=== PATIENT | male | born 1980 | race Hispanic/Latino ===

== ENCOUNTER 2017-08-03 10:46 | Emergency (ER) | payer BC ==
[2017-08-03 11:31] LABS: Absolute Lymphocytes (CBC) 1.7 K/uL (0.7-4.9); Absolute Monocytes 0.6 K/uL (0.1-1.3); Absolute Neutrophil 7.2 K/uL (1.8-8.0); Basophils % 0.6 % (0-1.3); Eosinophils % 1.4 % (0-4.4); Hematocrit 47.3 % (39.6-49.0); Lymphocytes % 17.8 % (15.3-44.8); MCH 29.4 pg (27.0-35.0); MCV 90.5 fL (80-100); MPV 10.5 fL (7.6-11.3); Monocytes % 6.4 % (3.3-12.3); RBC Red Blood Cell Count 5.23 M/uL (4.33-5.43)
[2017-08-03 11:37] LABS: Protime INR 0.97
[2017-08-03 11:45] LABS: Bicarbonate 30 mEq/L (21-31); Glucose Level 103 mg/dL (65-120); Potassium 3.4 mEq/L (3.6-5.0); Sodium Level 139 mEq/L (135-145)
[2017-08-03 11:46] LABS: BUN Blood Urea Nitrogen 15 mg/dL (6-20); Magnesium 2.1 mg/dL (1.8-2.5)
--- NOTE | 2017-08-03 12:44 | RAD REPORT ---
EXAM DESCRIPTION: RAD - Chest Single View - 08/03/2017 12:37 pm CLINICAL HISTORY: Chest pain. Palpitations. COMPARISON: None. FINDINGS: Portable technique limits examination quality. The lungs are grossly clear. The heart is normal in size. No displaced fractures. IMPRESSION: No acute intrathoracic process suspected.
--- NOTE | 2017-08-03 12:50 | EDPHYS ---
Physician Documentation [facility] Name: Cornelius Simmons Age: 36 yrs Sex: Male : 1980 Arrival Date: 08/03/2017 Time: 10:52 Bed 6 Private MD: None, None ED Physician Sorin Harper HPI: 08/03 12:04 This 36 yrs old Male presents to ER via Wheelchair with complaints of jr8 Dizziness, Palpitations. 12:04 The patient presents with lightheadedness. Onset: The symptoms/episode began/occurred jr8 acutely, today. Context: occurred at home, occurred while the patient was at rest. Associated signs and symptoms: Pertinent positives: palpitations. Severity of symptoms: At their worst the symptoms were moderate in the emergency department the symptoms are unchanged. Patient's baseline: Neuro: alert and fully oriented, Motor: no deficits, Ambulation: walks without assistance, Speech: normal. The patient has not experienced similar symptoms in the past. The patient has not recently seen a physician. Historical: - Allergies: 11:08 NKA; iw - Home Meds: : None [Active]; iw - PMHx: :08 None; iw - PSHx: 11:08 Hernia repair; iw - Immunization history:: Adult Immunizations not up to date. - Social history:: Smoking status: Patient uses tobacco products, denies chronic smoking, but will smoke occasionally. - Ebola Screening: : Patient negative for fever greater than or equal to 101.5 degrees Fahrenheit, and additional compatible Ebola Virus Disease symptoms Patient denies exposure to infectious person Patient denies travel to an Ebola-affected area in the 21 days before illness onset No symptoms or risks identified at this time. ROS: 12:04 Eyes: Negative for injury, pain, redness, and discharge, ENT: Negative for injury, jr8 pain, and discharge, Neck: Negative for injury, pain, and swelling, Respiratory: Negative for shortness of breath, cough, wheezing, and pleuritic chest pain, Abdomen/GI: Negative for abdominal pain, nausea, vomiting, diarrhea, and constipation, Back: Negative for injury and pain, MS/Extremity: Negative for injury and deformity, Skin: Negative for injury, rash, and discoloration, Neuro: Negative for headache, weakness, numbness, tingling, and seizure. 12:04 Cardiovascular: Positive for palpitations, Negative for chest pain, edema, orthopnea, paroxysmal nocturnal dyspnea. Exam: 12:04 Eyes: Pupils equal round and reactive to light, extra-ocular motions intact. Lids and jr8 lashes normal. Conjunctiva and sclera are non-icteric and not injected. Cornea within normal limits. Periorbital areas with no swelling, redness, or edema. ENT: Nares patent. No nasal discharge, no septal abnormalities noted. Tympanic membranes are normal and external auditory canals are clear. Oropharynx with no redness, swelling, or masses, exudates, or evidence of obstruction, uvula midline. Mucous membranes moist. Neck: Trachea midline, no thyromegaly or masses palpated, and no cervical lymphadenopathy. Supple, full range of motion without nuchal rigidity, or vertebral point tenderness. No Meningismus. Cardiovascular: Regular rate and rhythm with a normal S1 and S2. No gallops, murmurs, or rubs. Normal PMI, no JVD. No pulse deficits. Respiratory: Lungs have equal breath sounds bilaterally, clear to auscultation and percussion. No rales, rhonchi or wheezes noted. No increased work of breathing, no retractions or nasal flaring. Abdomen/GI: Soft, non-tender, with normal bowel sounds. No distension or tympany. No guarding or rebound. No evidence of tenderness throughout. Back: No spinal tenderness. No costovertebral tenderness. Full range of motion. Skin: Warm, dry with normal turgor. Normal color with no rashes, no lesions, and no evidence of cellulitis. MS/ Extremity: Pulses equal, no cyanosis. Neurovascular intact. Full, normal range of motion. Neuro: Awake and alert, GCS 15, oriented to person, place, time, and situation. Cranial nerves II-XII grossly intact. Motor strength 5/5 in all extremities. Sensory grossly intact. Cerebellar exam normal. Normal gait. Vital Signs: 11:06 BP 133 / 92; Pulse 94; Resp 18 S; Temp 98.0(TE); Pulse Ox 100% on R/A; Weight 104.33 iw kg; Height 5 ft. 9 in. (175.26 cm); Pain 0/10; 12:14 BP 124 / 84; Pulse 84; Resp 18; Pulse Ox 100% on R/A; hj 12:58 BP 120 / 78; Pulse 88; Resp 18; Pulse Ox 100% on R/A; hj 11:06 Body Mass Index 33.96 (104.33 kg, 175.26 cm) iw MDM: 10:59 Patient medically screened. [facility] 12:04 Data reviewed: vital signs, nurses notes, lab test result(s), EKG, radiologic studies, jr8 plain films, and as a result, I will discharge patient. Data interpreted: Pulse oximetry: on room air is 100 %. Interpretation: normal. Counseling: I had a detailed discussion with the patient and/or guardian regarding: the historical points, exam findings, and any diagnostic results supporting the discharge/admit diagnosis, lab results, radiology results, the need for outpatient follow up, a bar helper, to return to the emergency department if symptoms worsen or persist or if there are any questions or concerns that arise at home. ED course: Discussed with patient that there is nothing emergent that we can find. That he more then likely had transient arrhythmia. That he will need to follow up with cardiology for Holter monitor. If he felt it again before then to come back in. Family and patient good with this and will follow up . 08/03 11:14 Order name: Basic Metabolic Panel; Complete Time: [facility] 08/03 11:14 Order name: BNP; Complete Time: [facility] 08/03 11:14 Order name: CBC with Diff; Complete Time: 11:37 08/03 11:14 Order name: Magnesium; Complete Time: [facility] 08/03 11:14 Order name: PT-INR; Complete Time: 11:42 08/03 11:14 Order name: Troponin (emerg Dept Use Only); Complete Time: 08/03 11:14 Order name: XRAY Chest (1 view); Complete Time: 12:49 08/03 11:14 Order name: EKG; Complete Time: 08/03 11:14 Order name: Cardiac monitoring; Complete Time: 08/03 11:14 Order name: EKG - Nurse/Tech; Complete Time: 11:08/03 11:14 Order name: IV Saline Lock; Complete Time: 11:16 08/03 11:14 Order name: Labs collected and sent; Complete Time: 11:16 8 08/03 11:14 Order name: O2 Per Protocol; Complete Time: :16 jr8 08/03 11:14 Order name: O2 Sat Monitoring; Complete Time: :16 8 Administered Medications: No medications were administered Disposition: 15:16 Co-signature as Attending Physician, Sorin Harper MD I agree with the assessment and kdr plan of care. Disposition: 08/03/17 12:49 Discharged to Home. Impression: Palpitations. - Condition is Stable. - Discharge Instructions: Atrial Fibrillation, Palpitations, Premature Ventricular Contraction. - Work release form, Medication Reconciliation Form, Thank You Letter, Antibiotic Education, Prescription Opioid Use form. - Follow up: Luc Chand; When: 1 - 2 days; Reason: Recheck today's complaints, Continuance of care, Re-evaluation by your physician. - Problem is new. - Symptoms are resolved. Signatures: Dispatcher [employer] EDSorin Hernandez MD MD [facility] Lucinda Thomason RN RN Brad Carrion PA PA jr8 Joce Montiel RN RN hj Corrections: (The following items were deleted from the chart) 12:59 12:49 08/03/2017 12:49 Discharged to Home. Impression: Palpitations. Condition is hj Stable. Discharge Instructions: Atrial Fibrillation, Palpitations, Premature Ventricular Contraction. Forms are Medication Reconciliation Form, Thank You Letter, Antibiotic Education, Prescription Opioid Use. Follow up: Luc Chand; When: 1 - 2 days; Reason: Recheck today's complaints, Continuance of care, Re-evaluation by your physician. Problem is new. Symptoms are resolved. jr8 13:01 12:59 08/03/2017 12:49 Discharged to Home. Impression: Palpitations. Condition is jr8 Stable. Discharge Instructions: Atrial Fibrillation, Palpitations, Premature Ventricular Contraction. Forms are Medication Reconciliation Form, Thank You Letter, Antibiotic Education, Prescription Opioid Use. Follow up: Luc Chand; When: 1 - 2 days; Reason: Recheck today's complaints, Continuance of care, Re-evaluation by your physician. Problem is new. Symptoms are resolved. hj
--- NOTE | 2017-08-03 12:50 | ER ---
Nurse's Notes [facility] Name: Cornelius Simmons Age: 36 yrs Sex: Male : 1980 Arrival Date: 08/03/2017 Time: 10:52 Bed 6 Private MD: None, None Diagnosis: Palpitations Presentation: 08/03 11:04 Presenting complaint: Patient states: felt like he had palpitations yesterday around iw 230 pm that lasted til this morning, also felt dizzy when he stood up, states symptoms have improved but not completely resolved, denies chest pain. Transition of care: patient was not received from another setting of care. Onset of symptoms was August 02, 2017. Risk Assessment: Do you want to hurt yourself or someone else? Patient reports no desire to harm self or others. Initial Sepsis Screen: Does the patient meet any 2 criteria? No. Patient's initial sepsis screen is negative. Does the patient have a suspected source of infection? No. Patient's initial sepsis screen is negative. Care prior to arrival: None. 11:04 Method Of Arrival: Wheelchair iw 11:04 Acuity: ANGELLA 3 iw Triage Assessment: 11:17 General: Appears in no apparent distress. uncomfortable, Behavior is calm, cooperative, hj appropriate for age. Pain: Denies pain. Historical: - Allergies: 11:08 NKA; iw - Home Meds: 11:08 None [Active]; iw - PMHx: 11:08 None; iw - PSHx: 11:08 Hernia repair; iw - Immunization history:: Adult Immunizations not up to date. - Social history:: Smoking status: Patient uses tobacco products, denies chronic smoking, but will smoke occasionally. - Ebola Screening: : Patient negative for fever greater than or equal to 101.5 degrees Fahrenheit, and additional compatible Ebola Virus Disease symptoms Patient denies exposure to infectious person Patient denies travel to an Ebola-affected area in the 21 days before illness onset No symptoms or risks identified at this time. Screenin:17 Abuse screen: Denies threats or abuse. Denies injuries from another. Nutritional hj screening: No deficits noted. Tuberculosis screening: No symptoms or risk factors identified. Fall Risk None identified. Assessment: 11:06 General: Appears in no apparent distress. uncomfortable, Behavior is calm, cooperative, hj appropriate for age. Pain: Denies pain. Neuro: Level of Consciousness is awake, alert, obeys commands, Oriented to person, place, time, situation, Appropriate for age. Cardiovascular: Reports palpitations, Denies chest pain, Capillary refill < 3 seconds Patient's skin is warm and dry. Respiratory: Airway is patent Respiratory effort is even, unlabored, Respiratory pattern is regular, symmetrical. GI: No signs and/or symptoms were reported involving the gastrointestinal system. : No signs and/or symptoms were reported regarding the genitourinary system. EENT: No signs and/or symptoms were reported regarding the EENT system. Derm: No signs and/or symptoms reported regarding the dermatologic system. Musculoskeletal: No signs and/or symptoms reported regarding the musculoskeletal system. 12:14 Reassessment: Patient and/or family updated on plan of care and expected duration. Pain hj level reassessed. Patient is alert, oriented x 3, equal unlabored respirations, skin warm/dry/pink. Patient states feeling better. Vital Signs: 11:06 BP 133 / 92; Pulse 94; Resp 18 S; Temp 98.0(TE); Pulse Ox 100% on R/A; Weight 104.33 iw kg; Height 5 ft. 9 in. (175.26 cm); Pain 0/10; 12:14 BP 124 / 84; Pulse 84; Resp 18; Pulse Ox 100% on R/A; hj 12:58 BP 120 / 78; Pulse 88; Resp 18; Pulse Ox 100% on R/A; hj 11:06 Body Mass Index 33.96 (104.33 kg, 175.26 cm) iw ED Course: 10:52 Patient arrived in ED. mr 10:52 None, None is Private Physician. mr 10:59 Brad Carrion PA is PHCP. jr8 10:59 Sorin Harper MD is Attending Physician. jr8 11:06 Triage completed. iw 11:06 Arm band placed on. iw 11:13 Missed attempt(s): 20 gauge in left antecubital area. Bleeding controlled, band aid ks6 applied, catheter tip intact. 11:14 Inserted saline lock: 20 gauge in left antecubital area, using aseptic technique. Blood dh3 collected. 11:15 Joce Montiel, KIRSTIN is Primary Nurse. hj 11:18 Patient has correct armband on for positive identification. Placed in gown. Bed in low hj position. Call light in reach. Side rails up X 1. 11:26 EKG done, by genetic technologist. reviewed by Brad REEVES. 11:26 Initial lab(s) drawn, by me, sent to lab. formerly [facility] 12:33 X-ray completed. Portable x-ray completed in exam room. Patient tolerated procedure jb2 well. 12:35 XRAY Chest (1 view) In Process Unspecified. EDMS 12:49 Luc Chand MD is Referral Physician. jr8 12:57 IV discontinued, intact, bleeding controlled, No redness/swelling at site. Pressure hj dressing applied. 12:57 No provider procedures requiring assistance completed. hj Administered Medications: No medications were administered Outcome: 12:49 Discharge ordered by . jr8 12:57 Discharged to home ambulatory, with family. 12:57 Condition: stable 12:57 Discharge instructions given to patient, family, Instructed on discharge instructions, follow up and referral plans. Demonstrated understanding of instructions, follow-up care. 12:59 Patient left the ED. 13:01 Patient left the ED. jr8 Signatures: Dispatcher [employer] EDVT Sue Churchill mr SeguraMike jb2 Lucinda Thomason, RN Brad Miles PA PA jr8 [place] Joce Montiel, Erica Alvarez RN 3 Otto Sarabia ks6
--- NOTE | 2017-08-03 13:59 | EKG ---
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
== END 2017-08-03 13:01 | disposition home or self-care (01) ==
LOC: ER 10:46
DX: R00.2 Palpitations (principal); F17.210 Nicotine dependence, cigarettes, uncomplicated
CPT/HCPCS: 36415; 71045; 80048; 83735; 83880; 84484; 85025; 85610; 93005; 99284

== ENCOUNTER 2017-09-20 02:49 | Observation (INO) | payer BC ==
[2017-09-20] MEDS ORDERED: METOPROLOL TAR 25 MG TAB ONE (03:41)
[2017-09-20] MEDS ORDERED: NA CHLORIDE 0.9% 500 ML ONE (03:41)
[2017-09-20] MEDS ORDERED: DIGOXIN 0.25 MG/ML AMP ONE (03:41)
[2017-09-20] MEDS ORDERED: MAGNESIUM SULFATE 1 gm IVPB 2 GM/200 ML BAG IV ONE (03:46)
[2017-09-20 04:11] LABS: Absolute Lymphocytes (CBC) 2.2 K/uL (0.7-4.9); Absolute Neutrophil 7.5 K/uL (1.8-8.0); Basophils % 0.5 % (0-1.3); Hematocrit 47.3 % (39.6-49.0); Lymphocytes % 19.8 % (15.3-44.8); MCH 30.5 pg (27.0-35.0); MCV 91.3 fL (80-100); MPV 10.6 fL (7.6-11.3); Monocytes % 9.2 % (3.3-12.3); RBC Red Blood Cell Count 5.19 M/uL (4.33-5.43)
[2017-09-20 04:12] LABS: Protime INR 0.92
[2017-09-20 04:24] LABS: ALT/SGPT 38 U/L (12-78); AST/SGOT 20 U/L (15-37); Albumin 3.6 g/dL (3.4-5.0); Alkaline Phosphatase 86 U/L (45-117); BUN Blood Urea Nitrogen 18 mg/dL (7-18); Bicarbonate 27 mmol/L (21-32); Bilirubin Direct < 0.1 mg/dL (0-0.2); Bilirubin Total 0.2 mg/dL (0.2-1.0); Creatine Phosphokinase 81 U/L (39-308); Glucose Level 93 mg/dL (74-106); Magnesium 2.3 mg/dL (1.8-2.4); NT PRO-BNP 25 pg/mL (<125); Sodium Level 141 mmol/L (136-145)
[2017-09-20 04:45] LABS: Thyroid Stimulating Hormone 3.75 uIU/mL (0.36-3.74)
[2017-09-20 05:13] LABS: Barbiturates NEGATIVE (NEGATIVE); Benzodiazepines NEGATIVE (NEGATIVE); Cocaine NEGATIVE (NEGATIVE); METHAMPHETAM NEGATIVE (NEGATIVE); Methadone NEGATIVE (NEGATIVE); Opiates NEGATIVE (NEGATIVE); Phencyclidine NEGATIVE (NEGATIVE); THC Cannibis NEGATIVE (NEGATIVE)
[2017-09-20] MEDS ORDERED: ACETAMINOPHEN 500 MG TAB PO PRN (05:31)
[2017-09-20] MEDS ORDERED: MORPHINE 2 MG/ML SYR IV PRN (05:31)
[2017-09-20] MEDS ORDERED: ONDANSETRON 4 MG/2 ML VIAL IV PRN (05:31)
--- NOTE | 2017-09-20 05:33 | EDPHYS ---
Physician Documentation [facility] Name: Cornelius Simmons Age: 36 yrs Sex: Male : 1980 Arrival Date: 09/20/2017 Time: 02:50 Bed 6 Private MD: ED Physician Aurelio Ireland HPI: 09/21 05:54 This 36 yrs old Male presents to ER via Wheelchair with complaints of wa Irregular Pulse, Chest Pain, Nausea. 05:54 The patient presents with a history of irregular heart beat, heart skipping beats. wa Context: The symptoms occur at rest. Onset: The symptoms/episode began/occurred just prior to arrival. Duration: The patient or guardian reports a single episode, that is still ongoing. Modifying factors: The symptoms are aggravated by nothing. The symptoms are alleviated by nothing. Associated signs and symptoms: Pertinent positives: chest pain, lightheadedness. Associated signs and symptoms: Pertinent negatives: cough, SOB, syncope. Severity of symptoms: At their worst the symptoms were moderate in the emergency department the symptoms are unchanged. The patient has experienced a previous episode, dx'd with afib. resolved spontaneously. The patient has not recently seen a physician. pt is on a beta cornelia. seen here in the past for Afib that spontaneously resolved. Historical: - Allergies: 09/20 03:54 NKA; tl2 - Home Meds: 03:54 metoprolol tartrate 25 mg Oral tab PRN [Active]; tl2 - PMHx: 03:54 None; tl2 - PSHx: 03:54 None; tl2 - Immunization history:: Adult Immunizations. - Social history:: Smoking status: Patient uses tobacco products, denies chronic smoking, but will smoke occasionally. - Ebola Screening: : No symptoms or risks identified at this time. - Family history:: not pertinent. - Hospitalizations: : No recent hospitalization is reported. ROS: 09/21 05:57 Constitutional: Negative for fever, chills, and weight loss, Eyes: Negative for injury, wa pain, redness, and discharge, ENT: Negative for injury, pain, and discharge, Neck: Negative for injury, pain, and swelling, Abdomen/GI: Negative for abdominal pain, nausea, vomiting, diarrhea, and constipation, Back: Negative for injury and pain, : Negative for injury, bleeding, discharge, and swelling, MS/Extremity: Negative for injury and deformity, Skin: Negative for injury, rash, and discoloration, Neuro: Negative for headache, weakness, numbness, tingling, and seizure, Psych: Negative for depression, anxiety, suicide ideation, homicidal ideation, and hallucinations. Cardiovascular: Positive for palpitations, Negative for edema, paroxysmal nocturnal dyspnea. Respiratory: Negative for cough, orthopnea, shortness of breath, wheezing. Exam: 05:57 Constitutional: This is a well developed, well nourished patient who is awake, alert, wa and in no acute distress. Head/Face: Normocephalic, atraumatic. Eyes: Pupils equal round and reactive to light, extra-ocular motions intact. Lids and lashes normal. Conjunctiva and sclera are non-icteric and not injected. Cornea within normal limits. Periorbital areas with no swelling, redness, or edema. ENT: Nares patent. No nasal discharge, no septal abnormalities noted. Tympanic membranes are normal and external auditory canals are clear. Oropharynx with no redness, swelling, or masses, exudates, or evidence of obstruction, uvula midline. Mucous membranes moist. Neck: Trachea midline, no thyromegaly or masses palpated, and no cervical lymphadenopathy. Supple, full range of motion without nuchal rigidity, or vertebral point tenderness. No Meningismus. Chest/axilla: Normal chest wall appearance and motion. Nontender with no deformity. No lesions are appreciated. Respiratory: Lungs have equal breath sounds bilaterally, clear to auscultation and percussion. No rales, rhonchi or wheezes noted. No increased work of breathing, no retractions or nasal flaring. Abdomen/GI: Soft, non-tender, with normal bowel sounds. No distension or tympany. No guarding or rebound. No evidence of tenderness throughout. Back: No spinal tenderness. No costovertebral tenderness. Full range of motion. Skin: Warm, dry with normal turgor. Normal color with no rashes, no lesions, and no evidence of cellulitis. MS/ Extremity: Pulses equal, no cyanosis. Neurovascular intact. Full, normal range of motion. Neuro: Awake and alert, GCS 15, oriented to person, place, time, and situation. Cranial nerves II-XII grossly intact. Motor strength 5/5 in all extremities. Sensory grossly intact. Cerebellar exam normal. Normal gait. Psych: Awake, alert, with orientation to person, place and time. Behavior, mood, and affect are within normal limits. 05:57 Cardiovascular: Rate: tachycardic, Rhythm: irregularly irregular, Pulses: no pulse deficits are appreciated, Heart sounds: normal, Edema: is not appreciated, JVD: is not appreciated. Vital Signs: 09/20 03:30 BP 130 / 85; Pulse 148; Resp 20; Temp 97.9(O); Pulse Ox 97% on R/A; Weight 104.33 kg; tl2 Height 5 ft. 9 in. (175.26 cm); Pain 0/10; 04:30 BP 102 / 62; Pulse 110; Resp 18; Pulse Ox 98% on R/A; tl2 05:05 BP 114 / 74; Pulse 87; Resp 16; Pulse Ox 98% on R/A; tl2 05:25 Pulse 73; Resp 18; Pulse Ox 97% on R/A; tl2 07:20 BP 116 / 84; Pulse 76; Resp 18; Temp 97.5; Pulse Ox 97% on R/A; Pain 0/10; ph 08:35 BP 113 / 72; Pulse 72; Resp 18; Temp 97.5; Pulse Ox 99% on R/A; ph 03:30 Body Mass Index 33.97 (104.33 kg, 175.26 cm) tl2 MDM: 03:07 Patient medically screened. vt 09/21 05:59 Differential diagnosis: arrythmia, r/o ACS. Data reviewed: vital signs, nurses notes. vt Test interpretation: by ED physician or midlevel provider: CXR nml. labs noted wnl. . 06:00 Response to treatment: the patient's symptoms have markedly improved after treatment. vt Physician consultation: Jacklyn Hawkins MD. Admission orders: after a detailed discussion of the patient's condition and case, the admit orders are written by ri. ED course: pt received metoprolol, Mag sulfate, digoxin in attempt to convert back to sinus. rhythm changed to sinus at about 2 hours. admitted for obs and further cardiology consult. 09/20 03:11 Order name: Basic Metabolic Panel; Complete Time: 04:25 09/20 03:11 Order name: CBC with Diff; Complete Time: 04:09/20 03:11 Order name: CPK; Complete Time: 04:26 vt 09/20 03:11 Order name: LFT's; Complete Time: 04:25 vt 09/20 03:11 Order name: Magnesium; Complete Time: 04: vt 09/20 03:11 Order name: NT PRO-BNP; Complete Time: 04:26 vt 09/20 03:11 Order name: PT-INR; Complete Time: 04:26 vt 09/20 03:11 Order name: Troponin (emerg Dept Use Only); Complete Time: 05:13 vt 09/20 03:11 Order name: XRAY Chest (1 view); Complete Time: 05:59 vt 09/20 03:18 Order name: UDS; Complete Time: 05:15 vt 09/20 03:18 Order name: TSH; Complete Time: 05:13 vt 09/20 04:46 Order name: T4 Free; Complete Time: 05:13 [facility] 09/20 05:30 Order name: Urine Dipstick--Ancillary (enter results); Complete Time: 07:00 [facility] 09/20 05:36 Order name: Echo with Doppler [facility] 09/20 03:11 Order name: EKG; Complete Time: 03:11 vt 09/20 03:11 Order name: Cardiac monitoring; Complete Time: 03:32 vt 09/20 03:11 Order name: EKG - Nurse/Tech; Complete Time: 03:32 vt 09/20 03:11 Order name: IV Saline Lock; Complete Time: 03:32 vt 09/20 03:11 Order name: Labs collected and sent; Complete Time: 03:32 vt 09/20 03:11 Order name: O2 Per Protocol; Complete Time: 03:32 vt 09/20 05:35 Order name: CONS Pharmacy Consult [facility] 09/20 05:35 Order name: CONS Physician Consult [facility] 09/20 05:35 Order name: Heart Healthy [facility] 09/20 05:35 Order name: EKG Electrocardiogram [facility] 09/20 05:35 Order name: EKG Electrocardiogram [facility] 09/20 03:11 Order name: O2 Sat Monitoring; Complete Time: 03:32 vt 09/20 03:11 Order name: Urine Dipstick-Ancillary (obtain specimen); Complete Time: 04:52 vt 09/20 05:15 Order name: EKG - Nurse/Tech; Complete Time: 05:22 vt Administered Medications: 09/20 03:41 Drug: NS 0.9% 500 ml Route: IV; Rate: bolus; Site: right antecubital; tl2 05:32 Follow up: IV Status: Completed infusion; IV Intake: 500ml tl2 03:50 Drug: Magnesium Sulfate 2 grams Route: IVPB; Infused Over: 2 hrs; Site: right tl2 antecubital; 03:50 Drug: Digoxin 0.5 mg Route: IVP; Site: right antecubital; tl2 05:30 Follow up: Response: No adverse reaction; Cardiac rhythm changed tl2 03:50 Drug: Metoprolol 25 mg Route: PO; tl2 05:31 Follow up: Response: No adverse reaction; Cardiac rhythm changed tl2 05:39 Drug: Lovenox 100 mg Route: Sub-Q; Site: right lower abdomen; tl2 Disposition: 09/20/17 05:32 Hospitalization ordered by Jacklyn Hawkins for Observation. Preliminary diagnosis are Acute Palpitations, Acute atril fibrillation with RVR. - Bed requested for Telemetry/MedSurg (observation). - Status is Observation. ph - Condition is Stable. - Problem is new. - Symptoms have improved. UTI on Admission? No Critical care time excluding procedures: 09/21 06:03 Critical care time: Bedside Care: 20 minutes, Consultation: 5 minutes, Family wa Intervention: 10 minutes. Total time: 35 minutes Signatures: Dispatcher [employer] EDSoo Dale RN RN kl Hall, Patricia, RN RN ph Knox, Taylor, RN RN 2 Aurelio Ireland MD MD wa Corrections: (The following items were deleted from the chart) 09/20 06:20 05:32 Hospitalization Ordered by Jacklyn Hawkins MD for Observation. Preliminary kl diagnosis is Acute Palpitations; Acute atril fibrillation with RVR. Bed requested for Telemetry/MedSurg (observation). Status is Observation. Condition is Stable. Problem is new. Symptoms have improved. UTI on Admission? No. wa 09:44 06:20 09/20/2017 05:32 Hospitalization Ordered by Jacklyn Hawkins MD for Observation. ph Preliminary diagnosis is Acute Palpitations; Acute atril fibrillation with RVR. Bed requested for Telemetry/MedSurg (observation). Status is Observation. Condition is Stable. Problem is new. Symptoms have improved. UTI on Admission? No. kl
--- NOTE | 2017-09-20 05:33 | ER ---
Nurse's Notes [facility] Name: Cornelius Simmons Age: 36 yrs Sex: Male : 1980 Arrival Date: 09/20/2017 Time: 02:50 Bed 6 Private MD: Diagnosis: Acute Palpitations;Acute atril fibrillation with RVR Presentation: 09/20 03:30 Presenting complaint: Patient states: I woke up with palpitations, nausea and tl2 dizziness. This has happened before and the doctor gave me metoprolol to take if it happened again. I took one pill around 1:00 am. Transition of care: patient was not received from another setting of care. Onset of symptoms was September 20, 2017 at 01:00. Risk Assessment: Do you want to hurt yourself or someone else? Patient reports no desire to harm self or others. Initial Sepsis Screen: Does the patient meet any 2 criteria? No. Patient's initial sepsis screen is negative. Does the patient have a suspected source of infection? No. Patient's initial sepsis screen is negative. Care prior to arrival: Medication(s) given: metoprolol 25 mg. 03:30 Method Of Arrival: Wheelchair tl2 03:30 Acuity: ANGELLA 2 tl2 Triage Assessment: 03:30 General: Appears in no apparent distress. uncomfortable, Behavior is calm, cooperative, tl2 appropriate for age. Pain: Denies pain. Neuro: Level of Consciousness is awake, alert, obeys commands, Oriented to person, place, time, situation. Neuro: Reports dizziness. Cardiovascular: Denies chest pain, Rhythm is atrial fibrillation with rapid ventricular response. Respiratory: Airway is patent Respiratory effort is even, unlabored, Respiratory pattern is regular, symmetrical, Denies shortness of breath. GI: Reports nausea. : No signs and/or symptoms were reported regarding the genitourinary system. Derm: Skin is pink, warm \T\ dry. Historical: - Allergies: 03:54 NKA; tl2 - Home Meds: 03:54 metoprolol tartrate 25 mg Oral tab PRN [Active]; tl2 - PMHx: 03:54 None; tl2 - PSHx: 03:54 None; tl2 - Immunization history:: Adult Immunizations. - Social history:: Smoking status: Patient uses tobacco products, denies chronic smoking, but will smoke occasionally. - Ebola Screening: : No symptoms or risks identified at this time. - Family history:: not pertinent. - Hospitalizations: : No recent hospitalization is reported. Screenin:57 Abuse screen: Denies threats or abuse. Nutritional screening: No deficits noted. tl2 Tuberculosis screening: No symptoms or risk factors identified. Fall Risk None identified. Assessment: 03:58 Pain: Denies pain. Pain began. tl2 04:30 Reassessment: Patient appears in no apparent distress at this time. Patient and/or tl2 family updated on plan of care and expected duration. Pain level reassessed. Patient is alert, oriented x 3, equal unlabored respirations, skin warm/dry/pink. 05:05 Reassessment: Patient appears in no apparent distress at this time. Patient and/or tl2 family updated on plan of care and expected duration. Pain level reassessed. Patient is alert, oriented x 3, equal unlabored respirations, skin warm/dry/pink. 07:15 Reassessment: Patient appears in no apparent distress at this time. Patient and/or ph family updated on plan of care and expected duration. Pain level reassessed. Patient is alert, oriented x 3, equal unlabored respirations, skin warm/dry/pink. Patient denies pain at this time. Patient states feeling better. Patient states symptoms have improved. 08:20 Reassessment: Patient appears in no apparent distress at this time. Patient and/or ph family updated on plan of care and expected duration. Pain level reassessed. Patient is alert, oriented x 3, equal unlabored respirations, skin warm/dry/pink. Report called to KIRSTIN Song, pt waiting to be taken to floor. 08:30 Reassessment: Patient appears in no apparent distress at this time. Patient and/or ph family updated on plan of care and expected duration. Pain level reassessed. Patient is alert, oriented x 3, equal unlabored respirations, skin warm/dry/pink. Dr Christensen at bedside to speak w/ pt, recommends pt be d/c home, awaiting hospitalist. 08:50 Reassessment: Patient appears in no apparent distress at this time. Patient and/or ph family updated on plan of care and expected duration. Pain level reassessed. Patient is alert, oriented x 3, equal unlabored respirations, skin warm/dry/pink. Dr Villarreal at bedside to speak w/ pt, pt to be d/c, see [facility] for follow up and d/c info. Vital Signs: 03:30 BP 130 / 85; Pulse 148; Resp 20; Temp 97.9(O); Pulse Ox 97% on R/A; Weight 104.33 kg; tl2 Height 5 ft. 9 in. (175.26 cm); Pain 0/10; 04:30 BP 102 / 62; Pulse 110; Resp 18; Pulse Ox 98% on R/A; tl2 05:05 BP 114 / 74; Pulse 87; Resp 16; Pulse Ox 98% on R/A; tl2 05:25 Pulse 73; Resp 18; Pulse Ox 97% on R/A; tl2 07:20 BP 116 / 84; Pulse 76; Resp 18; Temp 97.5; Pulse Ox 97% on R/A; Pain 0/10; ph 08:35 BP 113 / 72; Pulse 72; Resp 18; Temp 97.5; Pulse Ox 99% on R/A; ph 03:30 Body Mass Index 33.97 (104.33 kg, 175.26 cm) tl2 Vitals: 04:30 Cardiac Rhythm Assessment Atrial fibrillation. tl2 05:05 Cardiac Rhythm Assessment Atrial fibrillation. tl2 05:25 Cardiac Rhythm Assessment Regular Sinus rhythm. tl2 07:20 Cardiac Rhythm Assessment Sinus rhythm. ph 08:35 Cardiac Rhythm Assessment Sinus rhythm. ph ED Course: 02:50 Patient arrived in ED. do 03:07 Aurelio Ireland MD is Attending Physician. wa 03:30 Arm band placed on right wrist. tl2 03:30 Patient has correct armband on for positive identification. Placed in gown. Bed in low tl2 position. Call light in reach. Side rails up X 1. Adult w/ patient. field support technician on. Pulse ox on. NIBP on. 03:30 Inserted saline lock: 20 gauge in right antecubital area, using aseptic technique. tl2 Blood collected. Patient maintains SpO2 saturation greater than 95% on room air. 03:33 X-ray completed. Portable x-ray completed in exam room. Patient tolerated procedure kw well. 03:33 XRAY Chest (1 view) In Process Unspecified. EDMS 03:52 Celine Justice RN is Primary Nurse. tl2 03:54 Triage completed. tl2 05:31 Jacklyn Hawkins MD is Hospitalizing Provider. wa 08:57 No provider procedures requiring assistance completed. IV discontinued, intact, ph bleeding controlled, No redness/swelling at site. Pressure dressing applied. Administered Medications: 03:41 Drug: NS 0.9% 500 ml Route: IV; Rate: bolus; Site: right antecubital; tl2 05:32 Follow up: IV Status: Completed infusion; IV Intake: 500ml tl2 03:50 Drug: Magnesium Sulfate 2 grams Route: IVPB; Infused Over: 2 hrs; Site: right tl2 antecubital; 03:50 Drug: Digoxin 0.5 mg Route: IVP; Site: right antecubital; tl2 05:30 Follow up: Response: No adverse reaction; Cardiac rhythm changed tl2 03:50 Drug: Metoprolol 25 mg Route: PO; tl2 05:31 Follow up: Response: No adverse reaction; Cardiac rhythm changed tl2 05:39 Drug: Lovenox 100 mg Route: Sub-Q; Site: right lower abdomen; tl2 Intake: 05:32 IV: 500ml; Total: 500ml. tl2 Outcome: 05:32 Decision to Hospitalize by Provider. wa 08:58 Admitted to Tele accompanied by tech, via wheelchair, room 406 . ph 08:58 Condition: good 08:58 Instructed on the need for admit. 09:44 Patient left the ED. ph Signatures: Dispatcher [employer] EDMS Domenica Guaman Patricia, RN RN Vandana Che Taylor, RN RN 2 Aurelio Ireland MD MD ia Corrections: (The following items were deleted from the chart) 03 03:52 Presenting complaint: Patient states: I woke up with palpitations, nausea and tl2 dizziness. This has happened before and the doctor gave me metoprolol to take if it happened again. I took one pill around 1:00 am. tl2 03:57 03:52 Transition of care: patient was not received from another setting of care. tl2 tl2 03:57 03:52 Onset of symptoms was September 20, 2017 at 01:00 tl2 tl2 0357 03:52 Risk Assessment: Do you want to hurt yourself or someone else? Patient reports no tl2 desire to harm self or others. tl2 03:57 03:52 Initial Sepsis Screen: Does the patient meet any 2 criteria? No. Patient's tl2 initial sepsis screen is negative. Does the patient have a suspected source of infection? No. Patient's initial sepsis screen is negative. tl2 03:52 Care prior to arrival: Medication(s) given: metoprolol 25 mg tl2 tl2 03:52 Method Of Arrival: Wheelchair tl2 tl2 03:52 Acuity: ANGELLA 2 tl2 tl2 04:35 04:30 Pulse 110bpm; Resp 18bpm; Pulse Ox 98% RA; tl2 tl2 05:40 03:30 BP 130 / 85; Pulse 148bpm; Resp 20bpm; Pulse Ox 97% RA; 104.33 kg; Height 5 ft. 9 tl2 in.; BMI: 33.9; Pain 0/10; tl2
[2017-09-20] MEDS ORDERED: ENOXAPARIN 100 MG/ML SYR SQ ONE (05:41)
[2017-09-20] MEDS ORDERED: NA CHLORIDE 0.9% 1,000 ML IV SCH (06:00)
[2017-09-20] MEDS ORDERED: METOPROLOL TAR 25 MG TAB PO SCH (06:00)
[2017-09-20 06:16] LABS: Urine Blood NEGATIVE (NEG); Urine Glucose NEGATIVE (NEG); Urine Protein NEGATIVE (NEG); Urine Specific Gravity 1.015 (1.005-1.030); Urine pH 6.5 (5.0-7.0)
--- NOTE | 2017-09-20 06:45 | EKG ---
Test Date: 2017-09-20 Test Time: 03:14:41 Oceanographer Geological: EVITA MEASUREMENT RESULTS: Intervals: Rate: 148 NH: QRSD: 76 QT: 256 QTc: 401 [place]: P: NH: QRS: 6 T: 23 INTERPRETIVE STATEMENTS: Atrial fibrillation with rapid ventricular response Abnormal ECG Compared to ECG 08/03/2017 11:10:55 Sinus rhythm no longer present Electronically Signed On 09-20-17 06:45:05 CDT by Luc Chand
--- NOTE | 2017-09-20 07:05 | P.HP ---
Certification for Inpatient Patient admitted to: Observation With expected LOS: <2 Midnights Patient will require the following post-hospital care: None Practitioner: I am a practitioner with admitting privileges, knowledge of patient current condition, hospital course, and medical plan of care. Services: Services provided to patient in accordance with Admission requirements found in Title 42 Section 412.3 of the Code of Federal Regulations Patient History Date of Service: 09/20/17 Reason for admission: Atrial fibrillation with RVR History of Present Illness: Patient is a 36-year-old gentleman who was diagnosed with atrial fibrillation. Patient has been started on Lopressor extended relief 25 mg daily. However, patient has not been using this. Patient did recently pick and shovel man the prescription about 3-4 days ago. Unfortunately patient did not take the medication. Patient went into atrial fibrillation with RVR this morning. Patient came to the emergency room. Patient was given IV Lopressor along with IV digoxin and IV magnesium. Patient converted to a sinus rhythm. Patient be admitted to the hospital for further evaluation. Patient did state that he had stress test and echocardiogram recently which were normal. Allergies No Known Allergies Allergy (Unverified 08/03/17 13:03) - Past Medical/Surgical History -: Atrial fibrillation with rapid ventricular response Past Surgical History: Patient denies surgical history - Family History Father Family History: Reviewed- Non-Contributory - Social History Smoking Status: Never smoker Alcohol use: No CD- Drugs: No Review of Systems 10-point ROS is otherwise unremarkable Physical Examination - Vital Signs Temperature: 98 F Blood Pressure: 130/70 Pulse: 80 Respirations: 18 Pulse Ox (%): 95 - Physical Exam General: Alert, In no apparent distress, Oriented x3 HEENT: Atraumatic, PERRLA, Mucous membr. moist/pink, EOMI, Sclerae nonicteric Neck: Supple, 2+ carotid pulse no bruit, No LAD, Without JVD or thyroid abnormality Respiratory: Clear to auscultation bilaterally, Normal air movement Cardiovascular: Regular rate/rhythm, Normal S1 S2, No murmurs Gastrointestinal: Normal bowel sounds, Soft and benign, Non-distended, No tenderness Musculoskeletal: No clubbing, No swelling, No tenderness Integumentary: No rashes Neurological: Normal gait, Normal speech, Normal strength at 5/5 x4 extr, Normal tone, Sensation intact, Cranial nerves 3-12 intact, Normal affect Lymphatics: No axilla or inguinal lymphadenopathy - Studies Laboratory Data (last 24 hrs) 09/20/17 03:29: PT 10.8, INR 0.92 09/20/17 03:29: WBC 11.0 H, Hgb 15.8, Hct 47.3, Plt Count 219 09/20/17 03:29: Sodium 141, Potassium 4.0, BUN 18, Creatinine 0.80, Glucose 93, Magnesium 2.3, Total Bilirubin 0.2, AST 20, ALT 38, Alkaline Phosphatase 86 Assessment & Plan - Plan Plan: 1. Resume beta-cornelia therapy 2. Anti coagulation 3. Outpatient follow with Cardiology - Advance Directives Does patient have a Living Will: No Does patient have a Durable POA for Healthcare: No - Code Status/Comfort Care Code Status Assessed: Yes Code Status: Full Code Critical Care: No Time Spent Managing PTS Care (In Minutes): 50
[2017-09-20] MEDS ORDERED: MORPHINE 4 MG/ML SYR IV PRN (07:38)
--- NOTE | 2017-09-20 08:57 | RAD REPORT ---
EXAM DESCRIPTION: RAD - Chest Single View - 09/20/2017 3:35 am CLINICAL HISTORY: PALPITATIONS Chest pain. COMPARISON: Chest Single View dated 08/03/2017 FINDINGS: Portable technique limits examination quality. The lungs are grossly clear. The heart is normal in size. No displaced fractures. IMPRESSION: No acute intrathoracic process suspected.
[2017-09-20] MEDS ORDERED: APIXABAN 5 MG TABLET PO SCH (09:00)
--- NOTE | 2017-09-20 12:05 | P.DS ---
Admission Date: 09/20/17 Discharge Date: 09/20/17 Disposition: ROUTINE DISCHARGE Discharge Condition: GOOD Reason for Admission: Atrial fibrillation with RVR Consultations: Dr. Broderick cardiology - Problems (1) Atrial fibrillation with RVR Onset Date: 09/20/17 Status: Acute Brief History of Present Illness: H&P Patient is a 36-year-old gentleman who was diagnosed with atrial fibrillation. Patient has been started on Lopressor extended relief 25 mg daily. However, patient has not been using this. Patient did recently picking table worker the prescription about 3-4 days ago. Unfortunately patient did not take the medication. Patient went into atrial fibrillation with RVR this morning. Patient came to the emergency room. Patient was given IV Lopressor along with IV digoxin and IV magnesium. Patient converted to a sinus rhythm. Patient be admitted to the hospital for further evaluation. Patient did state that he had stress test and echocardiogram recently which were normal. Hospital Course: If patient is a 36-year-old male who sees Dr. Broderick history of atrial fibrillation on beta-blockers noncompliant. Patient had recent stress test and echocardiogram which were normal. Patient comes in with palpitations. Patient improved with IV beta-cornelia went back into sinus rhythm. Patient was seen by craps dealer and was recommended to be discharged and to follow up with cardiology as outpatient. Patient did not have any chest pain no further palpitations or shortness of breath. I counseled the patient regarding his noncompliance he voiced understanding. Patient will resume his beta-blockers and will continue aspirin for stroke prophylaxis. patient was then discharged in stable condition Vital Signs/Physical Exam: Temp Pulse Resp BP Pulse Ox 97.5 F 72 18 113/72 95 09/20/17 08:35 09/20/17 08:35 09/20/17 08:35 09/20/17 08:35 09/20/17 07:07 General: Alert, In no apparent distress, Oriented x3, Obese HEENT: Atraumatic, Normocephalic, PERRLA, EOMI Neck: Supple, JVD not distended Respiratory: Clear to auscultation bilaterally, Normal air movement Cardiovascular: No edema, Normal pulses, Regular rate/rhythm, Normal S1 S2 Gastrointestinal: Normal bowel sounds, Soft and benign, Non-distended, No tenderness Musculoskeletal: No clubbing, No swelling, No tenderness Integumentary: No rashes Neurological: Normal speech, Normal tone, Normal affect External genitalia: No edema Laboratory Data at Discharge: WBC 11.0 K/uL (4.3-10.9) H 09/20/17 03:29 Hgb 15.8 g/dL (13.6-17.9) 09/20/17 03:29 Hct 47.3 % (39.6-49.0) 09/20/17 03:29 Plt Count 219 K/uL (152-406) 09/20/17 03:29 PT 10.8 SECONDS (9.5-12.5) 09/20/17 03:29 INR 0.92 09/20/17 03:29 Sodium 141 mmol/L (136-145) 09/20/17 03:29 Potassium 4.0 mmol/L (3.5-5.1) 09/20/17 03:29 BUN 18 mg/dL (7-18) 09/20/17 03:29 Creatinine 0.80 mg/dL (0.55-1.3) 09/20/17 03:29 Glucose 93 mg/dL (74-106) 09/20/17 03:29 Magnesium 2.3 mg/dL (1.8-2.4) 09/20/17 03:29 Total Bilirubin 0.2 mg/dL (0.2-1.0) 09/20/17 03:29 AST 20 U/L (15-37) 09/20/17 03:29 ALT 38 U/L (12-78) 09/20/17 03:29 Alkaline Phosphatase 86 U/L (45-117) 09/20/17 03:29 Home Medications: Aspirin [Aspirin EC 81 MG] 81 mg PO DAILY #30 tablet. 09/20/17 Metoprolol Tartrate [Lopressor*] 25 mg PO BID 6AM 6PM #60 tab 09/20/17 New Medications: Aspirin [Aspirin EC 81 MG] 81 mg PO DAILY #30 tablet. Metoprolol Tartrate [Lopressor*] 25 mg PO BID 6AM 6PM #60 tab Patient Discharge Instructions: f/up w PCP in 2-3 days. f/up w craps dealer Dr. Broderick in 2 weeks. Return to ER for worsening condition Diet: AHA Activity: Ad nadira
--- NOTE | 2017-09-20 14:48 | EKG ---
Test Date: 2017-09-20 Test Time: 05:19:48 Offset Platemaker: EVITA MEASUREMENT RESULTS: Intervals: Rate: 71 NV: 172 QRSD: 80 QT: 350 QTc: 380 [place]: P: 43 NV: 172 QRS: 6 T: 20 INTERPRETIVE STATEMENTS: Normal sinus rhythm Normal ECG Compared to ECG 09/20/2017 03:14:41 Atrial fibrillation no longer present Electronically Signed On 09-20-17 14:45:19 CDT by Sean Broderick
--- NOTE | 2017-09-21 11:24 | CON ---
Date of Consultation: 09/20/2017 I saw the patient on 09/20/2017 at the emergency room. Reason For Consultation: Atrial fibrillation. History Of Present Illness: Mr. Simmons is a 36-year-old male who I saw in the office i n the past because of palpitations. He had paroxysmal atrial fibrillation. He had a normal echo, no rmal stress test. I had ordered sleep study on him because of sleep apnea symptoms and he was to zeenat e metoprolol as needed. Has not had any episodes for a while, but he awoke with atrial fibrillation. He came to the emergency room, received magnesium, digoxin and p.o. Lopressor and converted to norm al rhythm. He is asymptomatic now. Past Medical History: Negative. Allergies: NONE. Review of Systems: Negative. Social History: Negative for tobacco. He uses alcohol occasionally. Medications: Include Lopressor as needed. Physical Examination: Vital Signs: Stable, afebrile. HEENT: Negative. Neck: Supple without any bruit, lymphadenopathy, JVD, or thyromegaly. Chest: Clear to auscultation and percussion. Cardiac: Revealed a regular rhythm and rate without any murmurs, gallops, or rubs. Abdomen: Benign. Extremities: Reveal no clubbing, cyanosis, or edema. Diagnostic Data: All normal except for a mildly elevated TSH. Impression And Plan: Paroxysmal atrial fibrillation. Normal echo, normal stress test. He still has very low CHADS score. I would recommend an aspirin. I am going to put him on beta-blockers on a re gular basis. If he continues to breakthrough, we will probably consider Betapace and/or anticoagulat ion. Strongly urged him to watch his alcohol intake and get a sleep study as soon as he can. I will see him in the office in the next 2-4 weeks. As far as I am concerned, he can go home. NAVID/EVY Voice ID: [id number] Report ID: [id number]
== END 2017-09-20 09:43 | disposition home or self-care (01) ==
LOC: ER 02:49 → ERHOLD 06:17 → 4TH 08:20
PROVIDERS: ADMIT Hospitalist; ATTEND Family Medicine
DX: I48.0 Paroxysmal atrial fibrillation (principal); T44.7X6A Underdosing of beta-adrenoreceptor antagonists, initial encounter; Z72.0 Tobacco use
CPT/HCPCS: 36415; 71045; 80048; 80076; 80307; 81003; 82550; 83735; 83880; 84439; 84443; 84484; 85025; 85610; 93005; 96361; 96372; 96374; 96375; 99285; G0378; J1160; J1650; J2270; J3475